=== PATIENT | female | born 1980 | race Caucasian/White ===

== ENCOUNTER 2018-03-12 10:52 | Emergency (ER) | payer MEDICAID, OTHER ==
[~2018-03-12] VITALS: Ht 160 cm; Wt 68.5 kg
[~2018-03-12 10:52] MED LIST: FERR-212 PO; PREN-385 PO
[2018-03-12 10:57] VITALS: BP 110/70
--- NOTE | 2018-03-12 11:36 | NUR ---
PATIENT PRESENTS TO ED WITH C/O ABNORMAL VAGINAL BLEEDING. PT REPORTS 13 WEEKS . PT REPORTS WAS AT WORK TODAY, USED RESTROOM AND NOTICED BLOOD ON TOILET PAPER AND SOME PINK TINGE IN THE TOILET. DENIES PAIN, VSS; PATIENT POSITIONED FOR COMFORT; HOB ELEVATED; BEDRAILS UP X2; BED DOWN. ER MD MADE AWARE OF PT STATUS.
--- NOTE | 2018-03-12 11:38 | NUR ---
Patient being evaluated by physician at bedside.
[2018-03-12 11:54] VITALS: BP 110/70
--- NOTE | 2018-03-12 11:54 | NUR ---
Patient discharged with v/s stable. Written and verbal after care instructions given and explained. Patient verbalized understanding. Ambulatory with steady gait. All questions addressed prior to discharge. Advised to follow up with PMD.
== END 2018-03-12 11:54 | disposition home or self-care (01) ==
LOC: MED 10:52
DX: O20.0 Threatened abortion (principal); Z3A.13 13 weeks gestation of pregnancy; Z79.899 Other long term (current) drug therapy
CPT/HCPCS: 81002; 99282

== ENCOUNTER 2018-03-14 07:10 | Emergency (ER) | payer OTHER ==
[~2018-03-14] VITALS: Ht 160 cm; Wt 68.3 kg
[2018-03-14 07:26] VITALS: BP 115/69
--- NOTE | 2018-03-14 07:30 | NUR ---
PT AMBULATES TO BED 1 WITH C/O VAGINAL BLEED, ABDOMINAL PAIN SINCE THIS MORNING; SEEON ON 03/10/2018 FOR THES SAME S/S; , LMP 11/10/2017 HX; DENIES RX; DENIES
--- NOTE | 2018-03-14 07:42 | NUR ---
DR LEE EVALUATING PT AT BEDSIDE
[2018-03-14 08:18] LABS: BASOPHILS % (AUTO) 0.5 % (0.0-2.0); EOSINOPHILS # (AUTO) 0.1 K/uL (0-0.4); EOSINOPHILS % (AUTO) 1.7 % (0.0-4.0); HEMATOCRIT 40.9 % (36-48); HEMOGLOBIN 13.6 g/dL (12.0-16.0); LYMPHOCYTES # (AUTO) 1.7 K/uL (2.5-16.5); LYMPHOCYTES % (AUTO) 24.4 % (20.5-51.1); MEAN CORPUSCULAR HEMOGLOBIN 29 pg (27-31); MEAN CORPUSCULAR HGB CONC 33 g/dL (33-37); MEAN CORPUSCULAR VOLUME 88.1 fL (80-94); MONOCYTES # (AUTO) 0.8 K/uL (0.8-1.0); MONOCYTES % (AUTO) 11.3 % (1.7-9.3); NEUTROPHILS # (AUTO) 4.2 K/uL (1.8-7.7); NEUTROPHILS % (AUTO) 62.1 % (42.2-75.2); PLATELET COUNT (AUTO) 264 K/uL (140-450); RED BLOOD CELL COUNT(AUTO) 4.64 MIL/uL (4.20-5.40); RED CELL DISTRIBUTION WIDTH 14.5 % (11.6-13.7); WHITE BLOOD COUNT (AUTO) 6.8 K/uL (4.8-10.8)
[2018-03-14 08:34] LABS: APPEARANCE,URINE SLIGHTLY CLOUDY (CLEAR); BLOOD, URINE 1+ (NEGATIVE); COLOR,URINE YELLOW (YELLOW); UGLUCOSE NEGATIVE (NEGATIVE)
[2018-03-14 08:35] LABS: BILIRUBIN,URINE NEGATIVE (NEGATIVE); LEUKOCYTE ESTERASE ,URINE NEGATIVE (NEGATIVE); NITRITE, URINE NEGATIVE (NEGATIVE)
[2018-03-14 08:36] LABS: RBC,URINE 0-5 (RARE) /HPF (0-5)
--- NOTE | 2018-03-14 11:00 | NUR ---
pt walked out of bed 1 pt eloped
== END 2018-03-14 11:00 | disposition left against medical advice (07) ==
LOC: MED 07:10
DX: O46.91 Antepartum hemorrhage, unspecified, first trimester (principal); Z3A.01 Less than 8 weeks gestation of pregnancy; Z79.899 Other long term (current) drug therapy
CPT/HCPCS: 36415; 76801; 76817; 81001; 81025; 84702; 85025; 86900; 86901; 87086; 99285; Q0092

== ENCOUNTER 2022-09-15 22:38 | Emergency (ER) | payer OTHER ==
[~2022-09-15] VITALS: Ht 160 cm; Wt 63.5 kg
[2022-09-15 22:40] VITALS: BP 130/79
--- NOTE | 2022-09-15 22:43 | NUR ---
TO LOBBY A/W BED AMBULATORY
--- NOTE | 2022-09-16 00:18 | NUR ---
PT TAKEN TPO BED 8
[2022-09-16] MEDS ORDERED: BACITRACIN OINT 500 UNITS/GM PKT TP ONE (00:20)
[2022-09-16] MEDS ORDERED: LIDOCAINE 1% 500 MG/ 50 ML VIAL INJ ONE (00:20)
[2022-09-16] MEDS ORDERED: LIDOCAINE MPF 1% 5 ML ONE (00:24)
--- NOTE | 2022-09-16 00:24 | NUR ---
Dr. Irving examining patient.
[2022-09-16 00:50] VITALS: BP 130/79
== END 2022-09-16 00:50 | disposition home or self-care (01) ==
LOC: MED 22:38
DX: S71.111A Laceration without foreign body, right thigh, initial encounter (principal); X58.XXXA Exposure to other specified factors, initial encounter; Y93.89 Activity, other specified; Y92.89 Other specified places as the place of occurrence of the external cause; Y99.8 Other external cause status
CPT/HCPCS: 12001; 90471; 90715; 99283; J2001